=== PATIENT | male | born 1945 | race Caucasian/White ===

== ENCOUNTER 2021-05-07 11:10 | Observation (INO) | payer MEDICARE, SELFPAY ==
[2021-05-07] VITALS (15 sets, daily range): BP systolic 116–148; BP diastolic 49–80; PULSE 85–96; RESP 16–20; TEMP 36.1–37.1; O2SAT 99–100; BMI 22.9
--- NOTE | ~2021-05-07 | XR_ITS ---
EXAMINATION: XR chest 2V DATE: 05/07/2021 13:55 INDICATION: Anemia. TECHNIQUE: Frontal and lateral views of the chest were obtained. COMPARISON: None. FINDINGS: There is mild scarring at the lung apices. A calcified left lung nodule is consistent with old granulomatous disease. No pleural effusion or pneumothorax. The heart size is normal. There is a moderate-sized hiatal hernia. IMPRESSION: 1. Mild scarring at the lung apices. 2. Moderate-sized hiatal hernia. Reviewed, dictated and finalized at location A.
--- NOTE | ~2021-05-07 | US_ITS ---
EXAMINATION: US venous doppler LE EXAM DATE: 05/08/2021 08:02 INDICATION: Bilateral leg edema. TECHNIQUE: Multiple grayscale, color flow and Doppler images of the lower extremity deep venous syste ms bilaterally were obtained and reviewed. There is no prior study for comparison. FINDINGS: Right side: The right common femoral, femoral and profunda veins demonstrate normal color flow, respi ratory variation, augmentation and compressibility. Compressibility, color flow confirmed within the right popliteal, posterior tibial, peroneal, and greater saphenous veins. Left side: The left common femoral, femoral and profunda veins demonstrate normal color flow, respira tory variation, augmentation and compressibility. Compressibility, color flow confirmed within the l eft popliteal, posterior tibial, peroneal, and greater saphenous veins. IMPRESSION: 1. No lower extremity deep venous thrombosis bilaterally. Reviewed, dictated and finalized at location B.
--- NOTE | 2021-05-07 12:51 | ED.SKABFB ---
HPI - Skin/Abscess/Foreign Bdy General Chief complaint: Skin/Abscess/Foreign Body Stated complaint: rash after covid vaccine Time Seen by Provider: 05/07/21 11:22 Source: patient Mode of arrival: ambulatory Limitations: no limitations History of Present Illness HPI narrative: Patient is a 75-year-old male who presents with complaints of itching and rash x1 month. Patient reports having second dose of Pfizer vaccine on 04/07 and reports symptoms of itching and rash starting on 04/08. He reports pins and needle sensation with rash. Patient has used ihna-vzw-iuxwwki meds without relief. Patient reports being seen in urgent care and given a prescription for prednisone with moderate relief. Patient does not have a PCP, denies significant medical history and does not take medication daily. MD complaint: rash Related Data Allergies Allergy/AdvReac Type Severity Reaction Status Date / Time No Known Allergies Allergy Verified 05/07/21 11:23 Review of Systems Review of Systems: Narrative: CONSTITUTIONAL: Denies fever, chills, or sweats. EYES: Denies visual changes, redness, or discharge. ENT: Denies rhinorrhea, congestion, sore throat, or otalgia. CARDIOVASCULAR: Denies chest pain, palpitations, or edema. RESPIRATORY: Denies cough or dyspnea. GASTROINTESTINAL: Denies abdominal pain, nausea, vomiting, or diarrhea. GENITOURINARY: Denies dysuria or hematuria. SKIN: Reports rash to bilateral extremities and trunk MUSCULOSKELETAL: Denies back pain, joint pain, or myalgia. NEUROLOGIC: Denies headache, numbness, dizziness, or weakness. PSYCHIATRIC: Denies anxiety or depression. [facility] Past Medical History Medical History Patient denies significant medical history Surgical History Surgical History No significant past surgical history Social History Social History (Updated 05/07/21 @ 12:54 by ZACH Monique) Smoking status: Never smoker Alcohol intake: current Alcohol use details: Occasional Substance use: never Living arrangements: with family Occupation/Education: occupation Comments At the time of signature, I have reviewed and agree with nursing past medical, surgical, social, and family history unless otherwise noted. Please see nursing chart for further information. There is no relevant family history pertinent to the presenting complaint. Exam Narrative: Exam Narrative: GENERAL: Well-appearing, well-nourished, and in no acute distress. HEAD: Normocephalic, atraumatic. EYES: EOMI. No redness or drainage. Conjunctiva are normal. ENT: Mucous membranes pink and moist. CHEST: No respiratory distress. HEART: Regular rate and rhythm. EXTREMITIES: Normal range of motion. No edema. SKIN: Warm, dry, no rash. NEURO: No focal deficits. Alert and oriented x3. Gait steady. PSYCH: Normal affect. No signs of depression or anxiety. Course Vital Signs Vital signs: Vital Signs Temperature 36.6 C 05/07/21 11:16 Pulse Rate 91 05/07/21 11:16 Respiratory Rate 20 05/07/21 11:16 Blood Pressure 143/67 H 05/07/21 11:16 Pulse Oximetry 100 05/07/21 11:16 Temperature 36.6 C 05/07/21 11:16 Pulse Rate 91 05/07/21 11:16 Respiratory Rate 20 05/07/21 11:16 Blood Pressure 143/67 H 05/07/21 11:16 Pulse Oximetry 100 05/07/21 11:16 Reviewed. Patient has been instructed to follow-up with his PCP regarding his blood pressure. MDM - Skin/Abscess/Foreign Bdy MDM Narrative Medical decision making narrative: Patient's H&H decreased, patient is severely anemic. Discussed with ARMINDA Peng, who agrees to admission for Dr. Hong. Patient to be admitted for transfusion and further evaluation at this time. Patient agrees with plan of care. Patient is stable for admission. Lab Data Result diagrams: 05/07/21 14:13 05/07/21 13:15 Labs: Lab Results 05/07/21
[2021-05-07 13:25] LABS: Basophils Percent Auto 0.2 % (0.2-1.2); Eosinophils Absolute Auto 1.3 K/mm3 (0-0.3); Eosinophils Percent Auto 21.6 % (0-4.4); Hematocrit 21.9 % (42.0-52.0); Immature Granulocyte Absolute 0.01 K/mm3 (0.00-0.031); Immature Granulocyte Percent A 0.2 % (0-0.5); Lymphocytes Absolute Auto 1.11 K/mm3 (0.9-3.2); Lymphocytes Percent Auto 18.8 % (18.3-44.2); Mean Corpuscular HGB Conc 24.2 g/dl (32-36); Mean Corpuscular Hemoglobin 17.3 pg (26-34); Mean Corpuscular Volume 71.3 fl (80-100); Mean Platelet Volume 10.1 fl (7.4-10.4); Monocytes Absolute Auto 0.4 K/mm3 (0.1-0.6); Monocytes Percent Auto 6.6 % (2.6-8.5); Neutrophils Absolute Auto 3.1 K/mm3 (1.3-6.7); Neutrophils Percent Auto 52.6 % (45.5-73.1); Platelet Count Result 277 k/mm3 (150-375); Red Blood Count 3.07 M/mm3 (4.6-6.20); White Blood Count 5.9 K/mm3 (4.5-10.0)
--- NOTE | 2021-05-07 13:35 | PC.NURSE ---
states past couple years slowed down to a stop, stubborn and has not seen a doctor , no known hx anemia. Pt appears pale in color, says he has appeared jaundiced, and he is always cold . Pt denies SOB, no resp distress
[2021-05-07 13:36] LABS: Alanine Aminotransferase 24 U/L (4-50); Albumin Level 3.5 g/dL (3.5-5.1); Alkaline Phosphatase 110 U/L (38-126); Anion Gap 6 mmol/L (8-16); Aspartate Amino Transferase 24 U/L (17-59); Bilirubin,Total 0.4 mg/dL (0.2-1.3); Blood Urea Nitrogen 11 mg/dL (9-20); Calcium 8.1 mg/dL (8.4-10.2); Carbon Dioxide 26 mmol/L (22-30); Chloride 105 mmol/L (98-107); Estimated CRCL calculation 125 ml/min; Estimated Glomerular Filt Rate > 60; Glucose 102 mg/dL (75-110); Hemoglobin 5.3 g/dL (14.0-18.0); Potassium 3.3 mmol/L (3.4-5.0); Sodium 137 mmol/L (137-145)
[2021-05-07 13:37] LABS: Anisocytosis 3+ (NORMAL); Platelet Estimate Adequate (Adequate)
[2021-05-07 13:38] LABS: Hypochromasia 2+ (NORMAL); Ovalocytes 2+ (NORMAL); Spherocytes 1+ (NORMAL)
[2021-05-07 14:22] LABS: Basophils Percent Auto 0.2 % (0.2-1.2); Eosinophils Absolute Auto 1.2 K/mm3 (0-0.3); Hematocrit 21.3 % (42.0-52.0); Immature Granulocyte Absolute 0.01 K/mm3 (0.00-0.031); Immature Granulocyte Percent A 0.2 % (0-0.5); Immature Platelet Fraction Pct 9.7 % (0.9-11.2); Lymphocytes Absolute Auto 1.13 K/mm3 (0.9-3.2); Lymphocytes Percent Auto 19.7 % (18.3-44.2); Mean Corpuscular HGB Conc 24.4 g/dl (32-36); Mean Corpuscular Hemoglobin 17.3 pg (26-34); Mean Corpuscular Volume 70.8 fl (80-100); Mean Platelet Volume 11.3 fl (7.4-10.4); Monocytes Absolute Auto 0.4 K/mm3 (0.1-0.6); Monocytes Percent Auto 6.3 % (2.6-8.5); Neutrophils Absolute Auto 3.1 K/mm3 (1.3-6.7); Neutrophils Percent Auto 53.6 % (45.5-73.1); Platelet Count Result 209 k/mm3 (150-375); Red Blood Count 3.01 M/mm3 (4.6-6.20); Red Cell Distribution Width 19.2 % (11.5-14.5); White Blood Count 5.7 K/mm3 (4.5-10.0)
[2021-05-07 14:47] LABS: Hemoglobin 5.2 g/dL (14.0-18.0)
[2021-05-07 14:49] LABS: Platelet Estimate Adequate (Adequate)
[2021-05-07 14:50] LABS: Anisocytosis 2+ (NORMAL); Hypochromasia 1+ (NORMAL); Poikilocytosis 2+ (NORMAL)
[2021-05-07 14:51] LABS: Burr Cells 2+ (NORMAL); Helmet Cells 1+ (NORMAL); Ovalocytes 2+ (NORMAL); Target Cells 1+ (NORMAL)
--- NOTE | 2021-05-07 19:23 | ADMGEN ---
This patient, Tacho Nevarez, was admitted to 3 [facility] Surg Room 306-01 at 1755. Patient/family oriented to hospital policies and general routines including ID bracelet, bed and alarms, visiting hours, pain management, procedures, bathroom and other care routines, personal items, smoking policy, room service/diet, and visiting hours. Information on how to activate the Rapid Response Team has been discussed. Patient/Family are encouraged to report perceived risks to care and to ask questions if they do not understand what they are told or what they should do.
--- NOTE | 2021-05-07 20:00 | PM.IMHP ---
H&P: HPI History of Present Illness Date/Time: 05/07/21 20:00This is a 75-year-old male patient does not routinely go to Dr.. The patient stated he has not been to a doctor for over 40 years. The patient stated that he received a COVID vaccine on 04/07/2020 in started to break out in a rash the next day. The patient stated that he did fill out a reaction form at [facility] we had the vaccine. The patient has a red raised itchy rash since his vaccine. The patient was using Caladryl at home and that does not seem to be helping. The patient came in today to be checked out for his rash. He had some labs performed when he got here. patient's RBC was 3.01. H&H is 5.2 in 21.3. MCV is 70.8. Potassium 3.3 the patient was ordered 2 units of packed red blood cells. the patient did not receive any anemia workup prior to his 2 units of packed red blood cells. The patient is being admitted for observation status on the date of service of 05/07/2021. Chief Complaint: rash Review of Systems Review of Systems: All systems reviewed & are unremarkable except as noted in HPI and below Constitutional: Constitutional: Reports as per HPI and Reports no additional constitutional complaints Eyes: Eyes: Reports as per HPI and Reports no additional eye complaints ENT: Reports system reviewed and no additional complaints, except as documented and Reports Normal hearing present Cardiovascular: Cardiovascular: Reports no additional cardiovascular complaints Respiratory: Respiratory: Reports no additional respiratory complaints and Reports no additional respiratory complaints Gastrointestinal: Gastrointestinal: Reports as per HPI and Reports no additional gastrointestinal complaints Musculoskeletal: Musculoskeletal: Reports no additional musculoskeletal complaints Integumentary/Breasts: Skin/Breast: Reports system reviewed and no additional complaints, except as docu and Reports as per HPI Neurologic: Reports system reviewed and no additional complaints, except as documented, Reports as per HPI and Reports Normal hearing present Psychiatric: Psychiatric: Reports no additional psychiatric complaints and Reports as per HPI Endocrine: Endocrine: Reports no additional endocrine complaints Hematologic/Lymphatic: Hematologic/Lymphatic: Reports no additional hematologic/lymphatic complaints Allergic/Immunologic: Allergic/Immunologic: Reports no additional allergic/immunologic complaints [facility] Past Medical History Medical History (Updated 05/07/21 @ 20:08 by Ginette Carl NP) Patient denies significant medical history Surgical History Surgical History (Updated 05/07/21 @ 20:08 by Ginette Carl NP) History of cataract extraction No significant past surgical history Family History Family History Mother Diabetes mellitus Heart attack Father Diabetes mellitus Sibling Diabetes mellitus COVID Social History Social History (Updated 05/07/21 @ 20:11 by Ginette Carl NP) Social History: the 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 The patient has 1 daughter. The patient occasionally has a glass of bourbon. Smoking status: Never smoker Alcohol intake: current Drinks per week: 4 Alcohol use details: Occasional Substance use: never Living arrangements: with family Occupation/Education: occupation Gender identity (if verbalized by the patient): Male Sexual Orientation (if Verbalized by the Patient): Straight or Heterosexual Spiritual care concerns: No Meds Home Medications and Allergies Home Medications Medication Instructions Recorded Confirmed Type [id number]-gipilzf-FOS-bromeln 15 ml PO DAILY 05/07/21 05/07/21 History [Cystex Cranberry] diphenhydramine-calamine [Caladryl 1 ea TOPICAL PRN PRN 05/07/21 05/07/21 History (diphenhydramine)]
[2021-05-07 22:13] LABS: Hemoglobin 7.3 g/dL (14.0-18.0); Reticulocyte Hemoglobin Conten 18.1 pg (28.2-35.7); Reticulocyte Percent 0.85 % (0.7-4.3); Reticulocytes Absolute 0.03 B/L (32.2-175.7)
[2021-05-07 22:20] LABS: Lactate Dehydrogenase 431 U/L (313-618)
[2021-05-07 22:21] LABS: Bilirubin,Total 0.9 mg/dL (0.2-1.3)
[2021-05-07 22:27] LABS: Transferrin 278 mg/dL (206-381)
[2021-05-07 22:50] LABS: Iron 94 ug/dL (49-181)
[2021-05-07 23:00] LABS: Percent Iron Saturation 23 % (20-50)
[2021-05-07 23:26] LABS: Ferritin 4.31 ng/mL (11.1-264)
[2021-05-07 23:27] LABS: Folic Acid 3.8 ng/mL (2.76->20)
--- NOTE | 2021-05-08 | ECHO_ITS ---
Patient Info Name: Tacho Nevarez Age: 75 years : 1945 Gender: Male Ht: 68 in Wt: 150 lbs BSA: 1.81 m2 HR: 83 bpm BP: 107 / 50 mmHg Technical Quality: Fair Exam Date: 05/08/2021 10:58 AM Exam Location: [facility] Pulmonary Patient Status: Outpatient Admit Date: 05/07/2021 Staff Ordering Physician: Ginette Carl NP Floor Care Technician: Ruth Ann Mayer RDCS Attending Provider: Laila Reyes PA-C Referring Physician: Meseret POLLARD; Exam Type: CA echo doppler color flow Study Info Indications R60.9 - Edema, unspecified Complete two-dimensional, color flow and Doppler transthoracic echocardiogram is performed. Summary 1. Complete two-dimensional, color flow and Doppler transthoracic echocardiogram is performed. 2. Left ventricular systolic function is normal, estimated at 60-65%. 3. The left ventricular diastolic function is indeterminate. 4. There is trace mitral valve regurgitation. 5. There is mild tricuspid valve regurgitation. Left Ventricle Left ventricular chamber dimension is normal. Left ventricular systolic function is normal, estimated at 60-65%. There is no increased left ventricular wall thickness. Left ventricular septal wall motion is normal. The left ventricular diastolic function is indeterminate. Right Ventricle Right ventricular chamber dimension is normal. Right ventricular systolic function is normal. Left Atria Left atrial chamber dimension is normal. Right Atria Right atrial chamber dimension is normal. Atrial Septum Intact interatrial septum visualized by color flow imaging. Aortic Valve The aortic valve is trileaflet. There is mild aortic valve sclerosis. There is no aortic valve stenosis. There is no aortic valve regurgitation. Pulmonic Valve The pulmonic valve is normal. There is no pulmonic valve stenosis. There is no pulmonic regurgitation. Mitral Valve The mitral valve has normal leaflets. There is no mitral valve stenosis. There is trace mitral valve regurgitation. Tricuspid Valve The tricuspid valve leaflets are normal. There is no significant tricuspid valve stenosis. There is mild tricuspid valve regurgitation. Mild pulmonary hypertension, estimated pulmonary arterial systolic pressure is 42 mmHg. Pericardium/Pleural The pericardium appears normal. There is no pericardial effusion. Inferior Vena Cava Normal inferior vena cava with >50% collapse upon inspiration consistent with normal right atrial pressure, 10 mmHg. Aorta The aortic root size at the sinus of Valsalva is normal. The prox ascending aorta size is normal. Left Ventricular Outflow Tract Name Value Normal LVOT 2D LVOT Diameter 2.0 cm LVOT Doppler LVOT Peak Gradient 10 mmHg LVOT Mean Gradient 6 mmHg LVOT VTI 34 cm LVOT VTI/AV VTI Ratio 0.9 LVOT Stroke Volume 104 ml Pulmonic Valve Name Value Normal
[2021-05-08] MEDS: SODIUM CHLORIDE 0.9% IV 1,000 ML 125 ML IV CONT (00:35)
[2021-05-08] MEDS: diphenhydrAMINE HCl INJ 50 MG/ML VIAL 25 MG IV PUSH (00:42)
[2021-05-08 04:02] LABS: Hemoglobin 7.1 g/dL (14.0-18.0)
[2021-05-08 04:11] LABS: Lactic Acid Reflex 0.8 mmol/L (0.7-2.1)
[2021-05-08 04:55] LABS: Alanine Aminotransferase 22 U/L (4-50); Albumin Level 3.1 g/dL (3.5-5.1); Alkaline Phosphatase 95 U/L (38-126); Anion Gap 7 mmol/L (8-16); Aspartate Amino Transferase 26 U/L (17-59); Bilirubin,Total 1.1 mg/dL (0.2-1.3); Blood Urea Nitrogen 12 mg/dL (9-20); Carbon Dioxide 25 mmol/L (22-30); Chloride 106 mmol/L (98-107); Estimated CRCL calculation 125 ml/min; Estimated Glomerular Filt Rate > 60; Glucose 93 mg/dL (75-110); Lactate Dehydrogenase 444 U/L (313-618); Potassium 3.3 mmol/L (3.4-5.0); Sodium 138 mmol/L (137-145); Uric Acid 2.9 mg/dL (3.5-8.5)
[2021-05-08 05:37] VITALS: BP 107/50; PULSE 82; RESP 18; TEMP 37; O2SAT 98
[2021-05-08 08:41] LABS: Hematocrit 26.9 % (42.0-52.0); Hemoglobin 7.3 g/dL (14.0-18.0)
[2021-05-08 10:37] LABS: Mean Corpuscular HGB Conc 26.7 g/dl (32-36); Mean Corpuscular Hemoglobin 20.1 pg (26-34); Mean Platelet Volume 11.2 fl (7.4-10.4); Platelet Count Result 257 k/mm3 (150-375); Red Blood Count 3.64 M/mm3 (4.6-6.20); Red Cell Distribution Width 20.1 % (11.5-14.5); White Blood Count 5.4 K/mm3 (4.5-10.0)
[2021-05-08] MEDS: CYANOCOBALAMIN INJ 1,000 MCG/ML VIAL 1000 MCG IM (10:40)
[2021-05-08] MEDS: POTASSIUM CHLORIDE 20 MEQ TABLET 40 MEQ PO (10:40)
[2021-05-08] MEDS: PANTOPRAZOLE SODIUM IV 40 MG VIAL IV PUSH ×2 (10:44→20:03)
[2021-05-08] MEDS: IRON SUCROSE COMPLEX 500 MG in SODIUM CHLORIDE 0.9% IV 250 ML 78.57 MG IVPB (10:56)
[2021-05-08 10:58] LABS: Band Neutrophils Percent 2 % (0-6); Eosinophils Absolute Manual 1.08 K/mm3 (0.02-0.5); Eosinophils Percent Manual 20 % (0-4); Lymphocytes Absolute Manual 0.75 K/mm3 (1.1-4.5); Monocytes Absolute Manual 0.32 K/mm3 (0.1-0.90); Monocytes Percent Manual 6 % (3-9); Neutrophils Absolute Manual 3.24 K/mm3 (1.3-6.7); Neutrophils Percent Manual 58 % (46-73); Platelet Estimate Adequate (Adequate); Total Cells Counted 100
[2021-05-08 10:59] LABS: Helmet Cells 1+ (NORMAL); Ovalocytes 2+ (NORMAL); Tear Drop Cells 2+ (NORMAL)
--- NOTE | 2021-05-08 13:03 | PDONCCN ---
HPI - Date of Consult Date/Time: 05/08/21 13:03 Requesting Physician: Laila Reyes PA-C Primary Care Provider: CONTROL CLERK PHYSICIAN - Consult Narrative Reason for consult: Anemia Narrative: Tacho Nevarez is a 75 year old male was in in good health came into the hospital after receiving COVID vaccine injection on April 07, 2020 and then breakdown with a rash next day. He tried steroid without much relief. Patient was followed up by the primary care physician and labs were drawn that showed hemoglobin of 5.2 with MCV of 70.8. He denies any bleeding including melena hematochezia. He was complaining of excessive tiredness and fatigue His last colonoscopy was almost 80 years ago. He has been eating well and denies being a vegetarian. He denies any other complain. His rash has improved. Patient received 2 units of packed red blood cells with improvement in hemoglobin. Review of Systems - Review of Systems All systems reviewed & are unremarkable except as noted in HPI and bel - Neurologic Reports system reviewed and no additional complaints, except as documented, Reports hearing normal [facility] Medical History: Medical History (Last Reviewed 05/07/21 @ 12:54 by ZACH Monique) Patient denies significant medical history Surgical History: Surgical History (Last Updated 05/07/21 @ 20:08 by Ginette Carl NP) History of cataract extraction No significant past surgical history Family History: Family History (Last Reviewed 05/07/21 @ 20:09 by Ginette Carl NP) Mother Diabetes mellitus Heart attack Father Diabetes mellitus Sibling Diabetes mellitus COVID - Social History Social History: Social History (Last Updated 05/07/21 @ 20:11 by Ginette Carl NP) Gender Identity: Gender identity (if verbalized by the patient): Male Sexual Orientation: Sexual Orientation (if Verbalized by the Patient): Straight or Heterosexual Alcohol Use: Alcohol intake: current Drinks per week: 4 Alcohol use details: Occasional Substance Use: Substance use: never Others: Spiritual care concerns: No Living Arrangements: Living arrangements: with family Oppucation/Education: Occupation/Education: occupation Smoking Status: Smoking status: Never smoker Meds Home Medications Medication Instructions Recorded Confirmed Type citw-dhnE-oydbipn-FOS-bromeln 15 ml PO DAILY 05/07/21 05/07/21 History [Cystex Cranberry] diphenhydramine-calamine [Caladryl 1 ea TOPICAL PRN PRN 05/07/21 05/07/21 History (diphenhydramine)] Allergies Allergy/AdvReac Type Severity Reaction Status Date / Time pollen extracts AdvReac Congested Verified 05/07/21 19:31 Results - Labs CBC & Chem 7: 05/08/21 08:26 05/08/21 03:46 Labs: Short CBC 05/07/21 05/07/21 05/07/21 Range/Units 13:15 14:13 21:53 WBC 5.9 5.7 (4.5-10.0) K/mm3 Hgb 5.3 L* 5.2 L* 7.3 L (14.0-18.0) g/dL Hct 21.9 L 21.3 L 27.0 L (42.0-52.0) % Plt Count 277 209 (150-375) k/mm3 05/08/21 05/08/21 Range/Units 03:46 08:26 WBC 5.4 (4.5-10.0) K/mm3 Hgb 7.1 L 7.3 L (14.0-18.0) g/dL Hct 26.0 L 26.9 L (42.0-52.0) % Plt Count 257 (150-375) k/mm3 BMP 05/07/21 05/08/21 13:15 03:46 Sodium 137 138 Potassium 3.3 L 3.3 L Chloride 105 106 Carbon Dioxide 26 25 BUN 11 12 Creatinine 0.40 L 0.40 L Glucose 102 93 Calcium 8.1 L 8.0 L Liver Function 05/07/21 05/07/21 05/08/21 Range/Units 13:15 21:59 03:46 Total Bilirubin 0.4 0.9 1.1 (0.2-1.3) mg/dL Direct Bilirubin 0.0 (0-0.3) mg/dL AST 24 26 (17-59) U/L ALT 24 22 (4-50) U/L Alkaline Phosphatase 110 95 (38-126) U/L Albumin 3.5 3.1 L (3.5-5.1) g/dL Assessment and Plan - Additional Plan Microcytic anemia. Patient is a pleasant 75-year-old male who developed generalized rash after the last COVID vaccine on Ruba
[2021-05-08 14:00] VITALS: BP 127/57; PULSE 72; RESP 18; TEMP 36.4; O2SAT 100
--- NOTE | 2021-05-08 14:47 | PM.IMPN ---
Progress Note: A&P Assessment and Plan (1) Anemia: Qualifiers: Anemia type: unspecified type Qualified Code(s): D64.9 - Anemia, unspecified Code(s): D64.9 - Anemia, unspecified Status: Acute Assessment and Plan: Acute severe iron deficiency with low ferritin levels and B12 deficiency anemia. Could be from diet vs Gi bleeding vs bone marrow issue vs underlying cancer. Required 2 units of PRBCs which improved his hemoglobin from 5.2 to 7.3. The patient denies any melena or hematochezia Stool occult blood is still pending he was started on IV Venofer and IM Cyanocobalamin. Hematology was consulted and they evaluated the patient. Agrees with supplementation of iron and B12 and GI consultation. GI was consulted which was recommended by the collar tacker for further evaluation of his severe iron deficiency anemia Continue monitoring H&H Q 6 and check stools. transfuse as needed if hemoglobin becomes less than 7. Appreciate GI and hematology consultation. (2) Extremity edema: Code(s): R60.0 - Localized edema Status: Acute Assessment and Plan: the patient reports history of leg swelling but usually improves with elevation. He had venous Dopplers which were negative for any DVT. The patient did receive IV fluids since admission and has noticed an increase in his leg swelling as well as swelling to his arms and hands. We have discontinued IV fluids at this time since he is eating and drinking without any issues and is not dehydrated. His lungs are clear with no signs of fluid overload. Echocardiogram has been ordered but pending still tender's interpretation to look for any underlying congestive heart failure Continue monitoring intake and output. Weights daily. (3) Rash: Code(s): R21 - Rash and other nonspecific skin eruption Status: Acute Assessment and Plan: The patient stated that he has had this rash since his COVID vaccine 1 month ago. He has tried Calamine lotion without any improvement. This is why he actually came into the emergency room yesterday. He was given a dose of IV Benadryl but states he did not have any improvement of his symptoms. Will start Hydrocordizone Cream 2.5%, PRN PO Benadryl 25 mg, consider scheduling Q6hrs if still no improvement and then consider discharging on steroids if no improvement with any of the above. Time Spent With Patient Time with patient: 25 - 35 minutes Subjective Date/time seen: 05/08/21 14:47 Interval history: Date of service 05/08/2021: patient reports coming into the emergency room due to his diffuse rash to his waist up, without any improvement with topical calamine lotion. While he was here he was found to have significant anemia which surprised him. He does report a 38 lb weight loss in the last year and a half due to some postprandial pain and intermittent nausea and vomiting. He denies any melena or hematochezia. He does report some leg swelling but states it improves when he puts his feet up at night. he does report some PND and his states she has witnessed apnea episodes while he sleeps. He denies any fevers, chills, chest pain, shortness of breath, orthopnea, Calf pain, lightheadedness, dizziness, palpitations or any other symptoms at this time. Review of Systems Review of Systems: All systems reviewed & are unremarkable except as noted in HPI and below Exam Narrative: Exam Narrative: General: 75-year-old man sitting up on the side of the bed talking to his . Appears comfortable. In no acute distress. Skin: Pale appearing. No jaundice or cyanosis. Good skin turgor. Neck: Full range of motion. Supple. Respiratory: Lungs are clear to auscultation bilaterally. No wheezing, rales or rhonchi. No bony chest wall tenderness. Cardiov
[2021-05-08 15:06] LABS: Hematocrit 27.2 % (42.0-52.0); Hemoglobin 7.3 g/dL (14.0-18.0)
[2021-05-08 15:07] LABS: Anion Gap 9 mmol/L (8-16); Blood Urea Nitrogen 9 mg/dL (9-20); Carbon Dioxide 22 mmol/L (22-30); Chloride 110 mmol/L (98-107); Estimated CRCL calculation 103 ml/min; Estimated Glomerular Filt Rate > 60; Glucose 109 mg/dL (75-110); Potassium 3.6 mmol/L (3.4-5.0); Sodium 141 mmol/L (137-145)
--- NOTE | 2021-05-08 15:32 | WPDGICN ---
Assessment and Plan Assessment and plan (1) Anemia: Qualifiers: Anemia type: unspecified type Qualified Code(s): D64.9 - Anemia, unspecified Code(s): D64.9 - Anemia, unspecified Status: Acute Assessment and Plan: he has marked anemia with microcytic indices. This is suggestive of chronic blood loss. The most likely etiology would be colorectal or other gastrointestinal malignancy, colonic AVMs, and less likely peptic ulcer disease or some upper gastrointestinal pathology such as watermelon stomach I will schedule him for EGD and colonoscopy to be done tomorrow morning. We discussed at length the prep the risks and the possibilities of bleeding or perforation or the possible need for surgery to correct a complication. We discussed the sedation in the risk of cardiopulmonary complications. He agrees to proceed, adding that he has no problem with colonoscopy in taking the prep. He was at 1st concerned about someone putting instrument down his esophagus. GI Consult Note Consult date/time: 05/08/21 15:32 HPI: Tacho Nevarez is a 75 year old male who presented today to the emergency room to be investigated for her rash that developed after he received a COVID vaccine. He was found have a hemoglobin of 5.2 g. He states that he has never been anemic in the past. He denies seen blood in his stools or having black or tarry stools. He denies frequent heartburn or dysphagia. He denies any change in bowel habits. He has had some slight drop in his appetite and his weight but states that he usually eats very well. He does not use NSAIDs. He denies any abdominal pain. 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 Another 20 or 30 minutes later it was gone as if somebody flipped a switch. He states his last colonoscopy was about fiber 6 years ago [facility]. His is fairly certain that there was nothing significant found on that study. Although he had a primary care physician at that time he also brags that he has not seen a doctor for 40 years Review of Systems Review of Systems: All systems reviewed & are unremarkable except as noted in HPI and below PMFSH Past Medical History Medical History Patient denies significant medical history Surgical History Surgical History History of cataract extraction No significant past surgical history Family History Family History Mother Diabetes mellitus Heart attack Father Diabetes mellitus Sibling Diabetes mellitus COVID Social History Social History (Updated 05/08/21 @ 15:36 by Jesse Falk MD) Social History: the patient is and his is 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 The patient has 1 daughter. The patient occasionally has a glass of bourbon. 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 Smoking status: Never smoker Alcohol intake: current Drinks per week: 4 Alcohol use details: Occasional Substance use: never Living arrangements: with family Occupation/Education: occupation Gender identity (if verbalized by the patient): Male Sexual Orientation (if Verbalized by the Patient): Straight or Heterosexual Spiritual care concerns: No Meds Home Medications and Allergies Home Medications Medication Instructions Recorded Confirmed Type omft-gfnE-gtguiiq-FOS-bromeln 15 ml PO DAILY 05/07/21 05/07/21 History [Cystex Cranberry] diphenhydramine-calamine [Caladryl 1 ea TOPICAL PRN PRN 05/07/21 05/07/21 History (diphenhydramine)] Al
[2021-05-08] MEDS: PEG (High)/E-LYTE SOLN 4,000 ML BTL 3000 ML PO (16:02)
[2021-05-08 16:44] LABS: INR 1.1
[2021-05-08 16:45] LABS: Partial Thromboplastin Time 35.5 SECONDS (22.3-36.8)
[2021-05-08 18:48] LABS: Hematocrit 27.9 % (42.0-52.0); Hemoglobin 7.4 g/dL (14.0-18.0)
[2021-05-08] MEDS: HYDROCORTISONE 2.5% CREAM 30 GM TUBE 1 APPLIC TOPICAL (20:03)
[2021-05-08] MEDS: diphenhydrAMINE HCl CAP 25 MG CAPSULE PO (21:16)
[2021-05-08] MEDS: BISACODYL 5 MG TABLET EC 10 MG PO (21:16)
[2021-05-08 21:39] VITALS: BP 127/68; PULSE 81; RESP 18; TEMP 37; O2SAT 100
[2021-05-09] VITALS (12 sets, daily range): BP systolic 88–154; BP diastolic 51–78; PULSE 69–78; RESP 14–23; TEMP 36.5–36.8; O2SAT 95–100
[2021-05-09 01:56] LABS: Hematocrit 24.3 % (42.0-52.0)
[2021-05-09 02:21] LABS: Hemoglobin 6.7 g/dL (14.0-18.0)
[2021-05-09] MEDS: SODIUM CHLORIDE 0.9% IV 250 ML 30 ML IV CONT (05:15)
--- NOTE | 2021-05-09 07:24 | PCDIET ---
Patient finished bowel prep before 2300 05/09/21. He stated that he left his last BM in the toilet. It had a reddish brown tinge and no solids, otherwise clear. A critical H&H of was called and hospitalist Breanna notified at 0244. One unit of blood was ordered and started at about 0535. It has continued to run through this time. Patient has no c/o SOB, chest pain, or other related complications during the transfusion. It was started at 60 lpm and 15 minutes later it was been increased to 200 lpm with no further complications. This was done with the intent of having the blood transfused and H&H drawn before his procedures today.
[2021-05-09] MEDS: CYANOCOBALAMIN INJ 1,000 MCG/ML VIAL 1000 MCG IM (08:27)
[2021-05-09] MEDS: IRON SUCROSE COMPLEX 500 MG in SODIUM CHLORIDE 0.9% IV 250 ML 78.57 MG IVPB (08:27)
[2021-05-09] MEDS: HYDROCORTISONE 2.5% CREAM 30 GM TUBE 1 APPLIC TOPICAL (08:27)
[2021-05-09] MEDS: PANTOPRAZOLE SODIUM IV 40 MG VIAL IV PUSH (08:28)
[2021-05-09 10:23] LABS: Hematocrit 29.5 % (42.0-52.0); Hemoglobin 8.3 g/dL (14.0-18.0)
[2021-05-09 10:56] LABS: Anion Gap 6 mmol/L (8-16); Blood Urea Nitrogen 3 mg/dL (9-20); Calcium 8.2 mg/dL (8.4-10.2); Carbon Dioxide 24 mmol/L (22-30); Chloride 110 mmol/L (98-107); Estimated CRCL calculation 125 ml/min; Estimated Glomerular Filt Rate > 60; Glucose 86 mg/dL (75-110); Potassium 3.5 mmol/L (3.4-5.0); Sodium 140 mmol/L (137-145)
--- NOTE | 2021-05-09 11:30 | PC.NURSE ---
To GI Lab per w/c, IV continues. Report given to JOSEPH.
[2021-05-09] MEDS: LACTATED RINGERS 1,000 ML 150 ML IV CONT (11:41)
--- NOTE | 2021-05-09 12:05 | WPDANESEPPF ---
Anes - Initial Pre Proc Eval Procedure: Operation Date: 05/09/21 11:30 Proposed Procedures p Esophagogastroduodenoscopy & Colonoscopy - Jesse Falk MD Date/Time: 05/09/21 12:05 Surgeon: Laila Reyes PA-C Pre Op Diagnosis: severe anemia Patient Data Age: 75 Gender: M Height: 1.73 m Weight: 76.5 kg Last Vital Signs Temp 97.7 F 05/09/21 11:37 Pulse 74 05/09/21 11:37 Resp 20 05/09/21 11:37 BP 88/54 L 05/09/21 11:37 Pulse Ox 100 05/09/21 11:37 Allergies Allergy/AdvReac Type Severity Reaction Status Date / Time pollen extracts AdvReac Congested Verified 05/09/21 11:34 Home Medications Medication Instructions Recorded Confirmed Type kulp-ugmK-urhhmge-FOS-bromeln 15 ml PO DAILY 05/07/21 05/07/21 History [Cystex Cranberry] diphenhydramine-calamine [Caladryl 1 ea TOPICAL PRN PRN 05/07/21 05/07/21 History (diphenhydramine)] Laboratory Tests 05/07/21 05/08/21 05/08/21 15:04 14:38 14:38 Hgb 7.3 g/dL L g/dL (14.0-18.0) Hct 27.2 % L % (42.0-52.0) PT INR APTT Sodium 141 mmol/L mmol/L (137-145) Potassium 3.6 mmol/L mmol/L (3.4-5.0) Chloride 110 mmol/L H mmol/L (98-107) Carbon Dioxide 22 mmol/L mmol/L (22-30) Anion Gap 9 mmol/L mmol/L (8-16) BUN 9 mg/dL mg/dL (9-20) Creatinine 0.50 mg/dL L mg/dL (0.7-1.3) Estim Creat Clear Calc 103 ml/min ml/min Estimated GFR > 60 (59 - ) Glucose 109 mg/dL mg/dL (75-110) Calcium 8.0 mg/dL L mg/dL (8.4-10.2) Ur Random Creatinine U Random Total Protein Protein/Creatinin Ratio Urine Albumin U Pwpen-8-Fhjwllqr U Sktxv-1-Fxyhsiio U Beta Globulin U Gamma Globulin U Abnormal Prot Band 1 U Abnormal Prot Band 2 U Abnormal Prot Band 3 Urine PEP Interpret Blood Type A Positive Antibody Screen Negative Crossmatch See Detail 05/08/21 05/08/21 05/08/21 15:47 15:48 18:41 Hgb 7.4 g/dL L g/dL (14.0-18.0) Hct 27.9 % L % (42.0-52.0) PT 14.0 Seconds Seconds (11.1-14.7) INR 1.1 APTT 35.5 SECONDS SECONDS (22.3-36.8) Sodium Potassium Chloride Carbon Dioxide Anion Gap BUN Creatinine Estim Creat Clear Calc Estimated GFR Glucose Calcium Ur Random Creatinine Pending U Random Total Protein Pending Protein/Creatinin Ratio Pending Urine Albumin Pending U Hsnla-0-Uedupnyu Pending U Rekei-9-Nlvzpqej Pending U Beta Globulin Pending U Gamma Globulin Pending U Abnormal Prot Band 1 Pending U Abnormal Prot Band 2 Pending U Abnormal Prot Band 3 Pending Urine PEP Interpret Pending Blood Type Antibody Screen Crossmatch 05/09/21 05/09/21 05/09/21 01:42 09:58 09:58 Hgb 6.7 g/dL L* g/dL 8.3 g/dL L g/dL (14.0-18.0) (14.0-18.0) Hct 24.3 % L % 29.5 % L % (42.0-52.0) (42.0-52.0) PT INR APTT Sodium 140 mmol/L mmol/L (137-145) Potassium 3.5 mmol/L mmol/L (3.4-5.0) Chloride 110 mmol/L H mmol/L (98-107) Carbon Dioxide 24 mmol/L mmol/L (22-30) Anion Gap 6 mmol/L L mmol/L (8-16) BUN 3 mg/dL L D mg/dL (9-20) Creatinine 0.40 mg/dL L mg/dL (0.7-1.3) Estim Creat Clear Calc 125 ml/min ml/min Estimated GFR > 60 (59 - ) Glucose 86 mg/dL mg/dL (75-110) Calcium 8.2 mg
--- NOTE | 2021-05-09 13:35 | PC.NURSE ---
Returned from GI Lab. Report received from JOSEPH.
--- NOTE | 2021-05-09 15:23 | PM.DS ---
DS: Admitting Diagnosis Admitting Diagnosis Admitting Diagnosis: Allergic reaction DS: Discharge Diagnosis Discharge Diagnosis (1) Anemia: Qualifiers: Anemia type: unspecified type Qualified Code(s): D64.9 - Anemia, unspecified Code(s): D64.9 - Anemia, unspecified Status: Acute Assessment and Plan: Acute severe iron deficiency with low ferritin levels and B12 deficiency anemia. Could be from diet vs Gi bleeding vs bone marrow issue vs underlying cancer. Required 2 units of PRBCs which improved his hemoglobin from 5.2 to 7.3. The patient denies any melena or hematochezia Stool occult blood is still pending he was started on IV Venofer and IM Cyanocobalamin. Hematology was consulted and they evaluated the patient. Agrees with supplementation of iron and B12 and GI consultation. GI was consulted which was recommended by the electronics tester for further evaluation of his severe iron deficiency anemia Continue monitoring H&H Q 6 and check stools. transfuse as needed if hemoglobin becomes less than 7. Appreciate GI and hematology consultation. at discharge patient will need labs either Wednesday05/12/21 or Wednesday05/13/2021 will continue his iron p.o. and vitamin B12 p.o. no notable bleeding noted on endoscopy or colonoscopy (2) Extremity edema: Code(s): R60.0 - Localized edema Status: Acute Assessment and Plan: the patient reports history of leg swelling but usually improves with elevation. He had venous Dopplers which were negative for any DVT. The patient did receive IV fluids since admission and has noticed an increase in his leg swelling as well as swelling to his arms and hands. We have discontinued IV fluids at this time since he is eating and drinking without any issues and is not dehydrated. His lungs are clear with no signs of fluid overload. Echocardiogram has been ordered but pending appliquer zigzag's interpretation to look for any underlying congestive heart failure Continue monitoring intake and output. Weights daily. (3) Rash: Code(s): R21 - Rash and other nonspecific skin eruption Status: Acute Assessment and Plan: The patient stated that he has had this rash since his COVID vaccine 1 month ago. He has tried Calamine lotion without any improvement. This is why he actually came into the emergency room yesterday. He was given a dose of IV Benadryl but states he did not have any improvement of his symptoms. Will start Hydrocordizone Cream 2.5%, PRN PO Benadryl 25 mg, consider scheduling Q6hrs if still no improvement and then consider discharging on steroids if no improvement with any of the above. DS: Summary Hospital Course Hospital Course: patient is 75-year-old male with no known past medical history of presented to the ED for evaluation of a rash. Patient went got his COVID-19 vaccination ended up with a rash on his body. When he got here was noted that his hemoglobin was 5.5 a hematocrit at 21.3 and MCV at 70.8. Patient was given a total of 3units of packed red blood cells since his hospital stay. Currently his hemoglobin is 8.3 with hematocrit of 29.5. Patient will need to get labs again on Wednesday or Wednesday. patient also received an endoscopy and a colonoscopy which biopsies were taken patient will need to follow-up with Dr. Falk in 2-3 days for results. Repeat H&H is 8.9/31.5 Patient expressed concerned about taking new medications and his anemia. I did explain to the patient these medications will be continued I also explained to the patient that he will need get labs to follow-up with his hemoglobin hematocrit. Patient really had no other complaints except for he was talking about his legs being swollen which get better with rest and elevation. Patient denies chest pain, shortness of b
[2021-05-09 15:31] LABS: Hematocrit 31.5 % (42.0-52.0); Hemoglobin 8.9 g/dL (14.0-18.0)
[2021-05-11 06:37] LABS: Albumin 3.2 g/dL (3.8-4.8); Alpha 1 Globulin 0.3 g/dL (0.2-0.3); Alpha 2 Globulin 0.5 g/dL (0.5-0.9); Beta 1 Globulin 0.4 g/dL (0.4-0.6); Gamma Globulin 0.6 g/dL (0.8-1.7); Interpretation Consistent with; Protein, Total 5.3 g/dL (6.1-8.1)
[2021-05-11 21:54] LABS: Haptoglobin 110 mg/dL (43-212)
[2021-05-12 12:13] LABS: Creatinine, Random Urine 116 mg/dL (20-320); Total Protein/Creatinine Ratio 207 mg/g creat (22-128)
[2021-05-13 17:26] LABS: Soluble Transferrin Receptor 5.79 mg/L (0.76-1.76)
== END 2021-05-09 16:55 | disposition home or self-care (01) ==
LOC: ANHED 15:23 → ANH3MEDSUR 15:40
PROVIDERS: Emergency Medicine; Internal Medicine Gastroenterology; Nurse Practitioner; Physician Assistant; Admitting Provider Family Medicine; Emergency Provider Nurse Practitioner; Visit Provider Internal Medicine
PROC: 0DJ08ZZ Inspection of Upper Intestinal Tract, Via Natural or Artificial Opening Endoscopic (ICD-10-PCS; CPT 43235; principal; 2021-05-09 11:30)
DX: K29.80 Duodenitis without bleeding (principal); D64.9 Anemia, unspecified; K57.30 Diverticulosis of large intestine without perforation or abscess without bleeding; K44.9 Diaphragmatic hernia without obstruction or gangrene; K22.2 Esophageal obstruction; K31.9 Disease of stomach and duodenum, unspecified; D50.9 Iron deficiency anemia, unspecified; R60.0 Localized edema; R21 Rash and other nonspecific skin eruption
CPT/HCPCS: 45378; 43239; 43249; 36415; 36430; 71046; 80048; 80053; 82247; 82248; 82570; 82607; 82728; 82746; 83010; 83540; 83550; 83605; 83615; 83735; 84155; 84156; 84165; 84166; 84238; 84443; 84466; 84550; 85014; 85018; 85025; 85046; 85055; 85610; 85730; 86850; 86880; 86900; 86901; 86920; 88305; 93306; 93970; 96361; 96372; 96374; 96375; 96376; 99285; A9270; C9113; G0378; G0379; J1200; J1756; J2704; J3420; J7030; J7050; J7120; P9016

== ENCOUNTER 2021-05-12 13:41 | Outpatient (CLI) | payer MEDICARE, SELFPAY ==
[2021-05-12 15:53] LABS: Hematocrit 36.7 % (42.0-52.0); Hemoglobin 9.9 g/dL (14.0-18.0)
== END 2021-05-12 13:42 | disposition home or self-care (01) ==
LOC: ANHLAB 13:47
PROVIDERS: Visit Provider Nurse Practitioner
DX: D64.9 Anemia, unspecified (principal)
CPT/HCPCS: 36415; 85014; 85018

== ENCOUNTER 2021-05-13 11:34 | Outpatient (CLI) | payer MEDICARE, SELFPAY ==
[2021-05-17 11:01] LABS: Gliadin AB, IgG >100 Units (<20); Reticulin IgA Negative (Negative); TTG IGA AB 22 U/mL (<4)
== END 2021-05-13 11:35 | disposition home or self-care (01) ==
LOC: ANHLAB 11:37
PROVIDERS: Visit Provider Internal Medicine Gastroenterology
DX: D64.9 Anemia, unspecified (principal)
CPT/HCPCS: 36415; 83516; 86255

== ENCOUNTER 2021-05-14 11:09 | Outpatient (CLI) | payer MEDICARE, SELFPAY ==
[2021-05-14 12:18] LABS: Hematocrit 39.3 % (42.0-52.0); Hemoglobin 10.8 g/dL (14.0-18.0); Immature Platelet Fraction Pct 8.7 % (0.9-11.2); Mean Corpuscular HGB Conc 27.5 g/dl (32-36); Mean Corpuscular Hemoglobin 23.3 pg (26-34); Mean Corpuscular Volume 84.7 fl (80-100); Mean Platelet Volume 11.6 fl (7.4-10.4); Platelet Count Result 319 k/mm3 (150-375); Red Blood Count 4.64 M/mm3 (4.6-6.20); Red Cell Distribution Width 27.6 % (11.5-14.5); White Blood Count 6.7 K/mm3 (4.5-10.0)
[2021-05-14 12:26] LABS: Alanine Aminotransferase 32 U/L (4-50); Albumin Level 3.8 g/dL (3.5-5.1); Alkaline Phosphatase 150 U/L (38-126); Anion Gap 11 mmol/L (8-16); Aspartate Amino Transferase 33 U/L (17-59); Bilirubin,Total 0.3 mg/dL (0.2-1.3); Blood Urea Nitrogen 11 mg/dL (9-20); Calcium 8.7 mg/dL (8.4-10.2); Carbon Dioxide 25 mmol/L (22-30); Chloride 104 mmol/L (98-107); Estimated Glomerular Filt Rate > 60; Glucose 89 mg/dL (75-110); Potassium 3.6 mmol/L (3.4-5.0); Sodium 140 mmol/L (137-145)
[2021-05-14 12:37] LABS: Add Urine Microscopic? YES; Appearance Urine Clear (Clear); Bacteria Urine Trace /hpf; Bilirubin Urine Negative (Negative); Blood Urine Negative (Negative); Color Urine Yellow (Yellow); Glucose Urine UA Negative (Negative); Ketones Urine Negative (Negative); Leukocyte Esterase Ur Negative LEU/UL (NEGATIVE); Mucus Urine Few /lpf; Nitrate Urine Negative (Negative); Protein Urine 1+ mg/dL (Negative); Specific Grav Ur 1.021 (1.001-1.035); Squamous Epithelial Cell Urine Rare /hpf (Few); Urobilinogen Urine Negative mg/dL (<2.0)
[2021-05-14 13:56] LABS: Free T4 Free Thyroxine 1.05 ng/mL (0.78-2.19)
== END 2021-05-14 11:10 | disposition home or self-care (01) ==
LOC: ANHLAB 11:20
PROVIDERS: Visit Provider Emergency Medicine
DX: R60.0 Localized edema (principal); D64.9 Anemia, unspecified
CPT/HCPCS: 36415; 80053; 81001; 84439; 84443; 85027; 85055

== ENCOUNTER 2021-05-28 12:45 | Outpatient (CLI) | payer MEDICARE, SELFPAY | END 2021-05-28 12:46 | disposition home or self-care (01) | PROVIDERS: PCP Emergency Medicine; Visit Provider Emergency Medicine | DX: R82.90 Unspecified abnormal findings in urine (principal) | CPT/HCPCS: 87086 ==

== ENCOUNTER 2021-06-09 08:11 | Outpatient (CLI) | payer MEDICARE, SELFPAY ==
--- NOTE | ~2021-06-09 | US_ITS ---
EXAMINATION: US right upper quadrant DATE: 06/09/2021 08:47 INDICATION: Abnormal liver function tests. TECHNIQUE: Multiple grayscale and Doppler ultrasound images of the abdomen were obtained. COMPARISON: None FINDINGS: The visualized portions of the head and body of the pancreas are normal. There is diffuse h epatic steatosis. No liver surface nodularity. There is normal flow in main portal vein. The gallblad charlotte is normal in size and contains gallstones. No gallbladder wall thickening or sonographic Gracia s ign. The common duct is normal and measures 7 mm. IMPRESSION: 1. Diffuse hepatic steatosis. 2. Cholelithiasis. No evidence of acute cholecystitis. Reviewed, dictated and finalized at location A.
== END 2021-06-09 08:12 | disposition home or self-care (01) ==
PROVIDERS: PCP Emergency Medicine; Visit Provider Emergency Medicine
DX: R74.8 Abnormal levels of other serum enzymes (principal); K76.0 Fatty (change of) liver, not elsewhere classified; K80.20 Calculus of gallbladder without cholecystitis without obstruction
CPT/HCPCS: 76705

== ENCOUNTER 2021-06-13 12:23 | Outpatient (CLI) | payer MEDICARE, SELFPAY ==
[2021-06-13 12:52] LABS: Basophils Percent Auto 0.4 % (0.2-1.2); Eosinophils Absolute Auto 0.9 K/mm3 (0-0.3); Eosinophils Percent Auto 17.3 % (0-4.4); Hematocrit 40.6 % (42.0-52.0); Hemoglobin 12.5 g/dL (14.0-18.0); Lymphocytes Percent Auto 25.8 % (18.3-44.2); Mean Corpuscular HGB Conc 30.8 g/dl (32-36); Mean Corpuscular Hemoglobin 28.3 pg (26-34); Mean Corpuscular Volume 92.1 fl (80-100); Monocytes Absolute Auto 0.4 K/mm3 (0.1-0.6); Monocytes Percent Auto 7.6 % (2.6-8.5); Neutrophils Absolute Auto 2.5 K/mm3 (1.3-6.7); Neutrophils Percent Auto 48.9 % (45.5-73.1); Platelet Count Result 227 k/mm3 (150-375); Red Blood Count 4.41 M/mm3 (4.6-6.20); Red Cell Distribution Width 22.9 % (11.5-14.5)
[2021-06-13 14:28] LABS: Alanine Aminotransferase 36 U/L (4-50); Albumin Level 4.5 g/dL (3.5-5.1); Alkaline Phosphatase 107 U/L (38-126); Anion Gap 10 mmol/L (8-16); Aspartate Amino Transferase 39 U/L (17-59); Bilirubin,Total 0.5 mg/dL (0.2-1.3); Blood Urea Nitrogen 12 mg/dL (9-20); Calcium 9.5 mg/dL (8.4-10.2); Carbon Dioxide 23 mmol/L (22-30); Chloride 106 mmol/L (98-107); Estimated Glomerular Filt Rate > 60; Glucose 93 mg/dL (65-110); Potassium 4.6 mmol/L (3.4-5.0); Sodium 139 mmol/L (137-145)
[2021-06-14 01:10] LABS: Iron 96 ug/dL (49-181); Percent Iron Saturation 29 % (20-50)
== END 2021-06-13 12:24 | disposition home or self-care (01) ==
LOC: ANHLAB 12:28
PROVIDERS: PCP Emergency Medicine; Visit Provider Internal Medicine Hematology & Oncology
DX: D64.9 Anemia, unspecified (principal)
CPT/HCPCS: 36415; 80053; 82607; 82728; 83540; 83550; 85025

== ENCOUNTER 2021-08-28 14:22 | Outpatient (CLI) | payer MEDICARE, SELFPAY ==
[2021-08-28 14:40] LABS: Basophils Percent Auto 0.4 % (0.2-1.2); Eosinophils Absolute Auto 0.3 K/mm3 (0-0.3); Eosinophils Percent Auto 4.7 % (0-4.4); Hematocrit 41.8 % (42.0-52.0); Hemoglobin 13.8 g/dL (14.0-18.0); Immature Granulocyte Absolute 0.01 K/mm3 (0.00-0.031); Immature Granulocyte Percent A 0.2 % (0-0.5); Lymphocytes Absolute Auto 1.47 K/mm3 (0.9-3.2); Lymphocytes Percent Auto 27.7 % (18.3-44.2); Mean Corpuscular Hemoglobin 31.9 pg (26-34); Mean Corpuscular Volume 96.8 fl (80-100); Mean Platelet Volume 10.1 fl (7.4-10.4); Monocytes Absolute Auto 0.4 K/mm3 (0.1-0.6); Monocytes Percent Auto 7.5 % (2.6-8.5); Neutrophils Absolute Auto 3.2 K/mm3 (1.3-6.7); Neutrophils Percent Auto 59.5 % (45.5-73.1); Platelet Count Result 254 k/mm3 (150-375); Red Blood Count 4.32 M/mm3 (4.6-6.20); Red Cell Distribution Width 12.7 % (11.5-14.5); White Blood Count 5.3 K/mm3 (4.5-10.0)
[2021-08-28 15:14] LABS: Anion Gap 8 mmol/L (8-16); Blood Urea Nitrogen 8 mg/dL (9-20); Carbon Dioxide 29 mmol/L (22-30); Chloride 103 mmol/L (98-107); Estimated Glomerular Filt Rate > 60; Glucose 98 mg/dL (65-110); Potassium 4.3 mmol/L (3.4-5.0); Sodium 140 mmol/L (137-145)
[2021-08-28 16:00] LABS: Iron 73 ug/dL (49-181)
[2021-08-28 16:09] LABS: Percent Iron Saturation 22 % (20-50)
[2021-08-28 16:23] LABS: Folic Acid 2.4 ng/mL (2.76->20); Vitamin B12 > 1000.0 pg/mL (239-931)
== END 2021-08-28 14:23 | disposition home or self-care (01) ==
LOC: ANHLAB 14:23
PROVIDERS: PCP Emergency Medicine; Visit Provider Internal Medicine Hematology & Oncology
DX: D64.9 Anemia, unspecified (principal)
CPT/HCPCS: 36415; 80048; 82607; 82728; 82746; 83540; 83550; 85025

== ENCOUNTER → 2022-04-08 15:35 | Outpatient (CLI) | payer MEDICARE, SELFPAY ==
--- NOTE | ~2022-04-08 | XR_ITS ---
XR abdomen/kub 1V 04/08/2022 15:50 INDICATION: UTI. Hematuria. TECHNIQUE: KUB COMPARISON: None FINDINGS: Bowel gas pattern is normal. Moderate colonic fecal loading. There is no evidence of free a ir, mass, organomegaly, ascites or obstruction. No abnormal calculi are seen. The bones appear inta ct. There are lumbar compression deformities with generalized osteopenia. IMPRESSION: 1: No acute abdominal abnormality identified. Reviewed, dictated and finalized at location B.
== END ==
PROVIDERS: PCP Emergency Medicine; Visit Provider Emergency Medicine
DX: N39.0 Urinary tract infection, site not specified (principal); R31.9 Hematuria, unspecified
CPT/HCPCS: 74018

== ENCOUNTER 2024-07-24 14:37 | Emergency (ER) | payer MEDICARE, SELFPAY ==
--- NOTE | ~2024-07-24 | CT_ITS ---
EXAMINATION: CT abdomen pelvis w con DATE: 07/24/2024 16:04 INDICATION: Weakness, abdominal pain and diarrhea TECHNIQUE: Computed tomography (CT) of the abdomen and pelvis was performed with 100 mL Omnipaque-350 intravenous contrast. Automated exposure control and iterative reconstruction technique were employe d. The dose-length product was 464.10 mGy-cm. COMPARISON: None FINDINGS: Mild dependent atelectasis in bilateral lower lobes. Calcified left lower lobe nodules qualitatively single splenic calcification consistent with old granulomatous disease. Heart size normal. No pericar dial or pleural effusion. Moderate-sized sliding-type hiatal hernia.. There are multiple low-density gallstones in the nondependent aspect of the otherwise normal-appearing gallbladder. No gallbladder w all thickening or pericholecystic inflammatory stranding to suggest acute cholecystitis. Small elonga ayo geographic region of decreased attenuation along the ligamentum teres most likely related to foca l fat. Pancreas, bilateral adrenal glands and kidneys are normal. There is moderate colonic diverticu losis with a sigmoid predominance. There is no adjacent inflammatory change to suggest diverticuliti s. There is fluid and multiple loops of small bowel as well as the proximal colon consistent with pr ovided history of diarrhea. Is normal appendix. Prostate not visualized and likely surgically absent. Bladder is unremarkable. No free intraperitoneal gas or fluid. No pathologically enlarged abdominal or pelvic lymphadenopathy. Chronic appearing mild central endplate compression fractures at several l evels in the mid to lower lumbar spine. 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 IMPRESSION: 1. Fluid in portions of the large and small bowel consistent with provided history of diarrhea. No ot her acute intra-abdominal/pelvic process. 2. Moderate-sized sliding-type hiatal hernia. 3. Cholelithiasis without intra or extra hepatic biliary ductal dilation. 4. Moderate diverticulosis. Reviewed, dictated and finalized at location A. IMPRESSION: 1. Fluid in portions of the large and small bowel consistent with provided hist ory of diarrhea. No other acute intra-abdominal/pelvic process. 2. Moderate-sized sliding-type hiatal hernia. 3. Cholelithiasis without intra or extra hepatic biliary ductal dilation. 4. Moderate diverticulosis.
[2024-07-24 14:50] VITALS: BP 128/77; PULSE 91; RESP 15; TEMP 36.4; O2SAT 100
--- NOTE | 2024-07-24 15:06 | ED.GENADULT ---
HPI - General Adult General Chief complaint: Nausea/Vomiting/Diarrhea <Bae Chen PA-C - Last Filed: 07/24/24 15:13> Stated complaint: dehydrated/diarrhea <Bea Chen PA-C - Last Filed: 07/24/24 15:13> Time Seen by Provider: 07/24/24 15:00 <Bea Chen PA-C - Last Filed: 07/24/24 15:13> Focused HPI: Patient is a 78 y/o male who presents to the ED with c/o weakness and diarrhea. Patient reports he inflamed his large and small bowel a few weeks ago by eating sarabia beans with too much Tabasco sauce. He states he has had diarrhea over the past few weeks. He has been taking Imodium which has provided some relief. He c/o intermittent abd pain. Denies rectal bleeding, melena, fevers, N/V. He does also report congestion and sinus pressure. States he has a L inner ear infection. Denies drainage. Denies cough. Hx of anemia, states he is supposed to receive an iron infusion soon. GENERAL: Elderly, well-nourished, and in no acute distress. HEAD: Normocephalic, atraumatic. CHEST: Clear to auscultation. ?No respiratory distress. HEART: Regular rate and rhythm.? ABD: No significant tenderness. Normoactive BS NEURO: ?Alert and oriented x3. Patient screened in triage and initial orders placed.? ?Additional care and disposition to be based upon?diagnostic testing and treatment. <Bea Chen PA-C - Last Filed: 07/24/24 15:13> Source: patient <Bea Chen PA-C - Last Filed: 07/24/24 15:13> Mode of arrival: ambulatory <Bea Chen PA-C - Last Filed: 07/24/24 15:13> Limitations: no limitations <BEVERLY Romo Last Filed: 07/24/24 15:13> History of Present Illness HPI narrative: I agree with the HPI as documented in the medical screening exam. <Ludin Casanova MD - Last Filed: 07/24/24 20:50> Related Data Home medications: Home Medications Medication Instructions Recorded Confirmed ajqntqtfb-woaM-warikqa-FOS-bromelain 15 ml PO DAILY 05/07/21 06/03/21 1,937 mg-188 mg/15 mL oral liquid (Cystex Cranberry) diphenhydramine-calamine lotion 1 ea topical PRN PRN Itching 05/07/21 06/03/21 <Bea Chen PA-C - Last Filed: 07/24/24 15:13> Allergies/adverse reactions: Allergies Allergy/AdvReac Type Severity Reaction Status Date / Time pollen extracts AdvReac Congested Verified 06/03/21 13:43 <Bea Chen PA-C - Last Filed: 07/24/24 15:13> Review of Systems Review of Systems: All systems reviewed & are unremarkable except as noted in HPI and below <Ludin Casanova MD - Last Filed: 07/24/24 20:50> PMFSH Past Medical History Medical History: Medical History Patient denies significant medical history <Bea Chen PA-C - Last Filed: 07/24/24 15:13> Surgical History Surgical History: Surgical History History of cataract extraction No significant past surgical history <Bea Chen PA-C - Last Filed: 07/24/24 15:13> Family History Family History: Family History Mother Diabetes mellitus Heart attack Father Diabetes mellitus Sibling Diabetes mellitus COVID <Bea Chen PA-C - Last Filed: 07/24/24 15:13> Social History Social History: Social History Social History: the 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 The patient has 1 daughter. The patient occasionally has a glass of bourbon. 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
[2024-07-24 15:23] LABS: Basophils Percent Auto 0.2 % (0.2-1.2); Eosinophils Percent Auto 0.5 % (0-4.4); Hematocrit 43.6 % (42.0-52.0); Hemoglobin 14.7 g/dL (14.0-18.0); Immature Granulocyte Absolute 0.02 K/mm3 (0.00-0.031); Immature Granulocyte Percent A 0.3 % (0-0.5); Lymphocytes Absolute Auto 0.69 K/mm3 (0.9-3.2); Lymphocytes Percent Auto 10.5 % (18.3-44.2); Mean Corpuscular HGB Conc 33.7 g/dl (32-36); Mean Corpuscular Hemoglobin 29.5 pg (26-34); Mean Corpuscular Volume 87.6 fl (80-100); Monocytes Absolute Auto 0.6 K/mm3 (0.1-0.6); Monocytes Percent Auto 9.6 % (2.6-8.5); Neutrophils Absolute Auto 5.2 K/mm3 (1.3-6.7); Neutrophils Percent Auto 78.9 % (45.5-73.1); Platelet Count Result 252 k/mm3 (150-375); Red Blood Count 4.98 M/mm3 (4.6-6.20); Red Cell Distribution Width 14.6 % (11.5-14.5); White Blood Count 6.6 K/mm3 (4.5-10.0)
[2024-07-24 15:37] VITALS: BP 118/81; PULSE 93; RESP 17; O2SAT 97
[2024-07-24 15:39] LABS: Alanine Aminotransferase 42 U/L (6-50); Albumin Level 4.1 g/dL (3.5-5.1); Alkaline Phosphatase 74 U/L (38-126); Anion Gap 13 mmol/L (4-12); Aspartate Amino Transferase 35 U/L (17-59); Bilirubin,Total 0.9 mg/dL (0.2-1.3); Blood Urea Nitrogen 14 mg/dL (9-20); Calcium 8.7 mg/dL (8.4-10.2); Carbon Dioxide 23 mmol/L (22-30); Chloride 96 mmol/L (98-107); Estimated CRCL calculation 95 ml/min; Estimated Glomerular Filt Rate > 60; Glucose 103 mg/dL (65-110); Lipase 246 U/L (23-300); Potassium 2.7 mmol/L (3.4-5.0); Sodium 132 mmol/L (137-145)
[2024-07-24 15:59] LABS: Influenza A QL RT-PCR Negative (Negative); Influenza B QL RT-PCR Negative (Negative); RSV RNA, RT-PCR Negative (Negative); SARS-CoV-2 RNA PCR Negative (Negative)
--- NOTE | 2024-07-24 16:19 | ECG_ITS ---
Test Date: 2024-07-24 17:48:51 Measurements Intervals [place] Rate: 96 P: 0 [place]: 0 QRS: 2 QRSD: 94 T: 64 QT: 362 QTc: 458 Interpretive Statements SINUS RHYTHM WITH FREQUENT ATRIAL PREMATURE COMPLEXES EARLY PRECORDIAL R/S TRANSITION MINIMAL Q WAVES- ANTERAOLAT/HIGH LAT LEADS BORDERLINE ST-T WAVE ABNORMALITY- HIGH LATERAL LEADS BASELINE ARTIFACT- I, II, III, AVR, AVL, AVF, V1-V6 ABNORMAL ECG No previous ECG available for comparison Electronically Signed On 07-24-2024 18:51:47 CDT by Hilario Mo D.O.
[2024-07-24 16:49] LABS: Lactic Acid Reflex 1.5 mmol/L (0.7-2.0)
[2024-07-24] MEDS: POTASSIUM CHLORIDE 20 MEQ PACKET (FOR LIQUID) 40 MEQ PO (17:13)
[2024-07-24] MEDS: KCL 20 MEQ/SW 100 ML 100 ML 50 MEQ IVPB (17:15)
[2024-07-24] MEDS: SODIUM CHLORIDE 0.9% IV 1,000 ML 999 ML IV CONT (17:15)
[2024-07-24 18:03] VITALS: BP 116/81; PULSE 98; RESP 20; O2SAT 97
[2024-07-24 18:15] LABS: Add Urine Microscopic? YES; Appearance Urine Clear (Clear); Bacteria Urine None Seen /hpf; Bilirubin Urine Negative (Negative); Blood Urine 2+ (Negative); Color Urine Yellow (Yellow); Glucose Urine UA Negative (Negative); Ketones Urine Trace mg/dL (Negative); Leukocyte Esterase Ur Negative LEU/UL (Negative); Need Manual Microscopic Reviewed; Nitrate Urine Negative (Negative); Non Pathogenic Casts 0-2; Protein Urine Trace mg/dL (Negative); RBC Urine 51-100 /hpf (0-2); Specific Grav Ur > 1.045 (1.001-1.035); Squamous Epithelial Cell Urine None Seen /hpf (Few); Urobilinogen Urine 0.2 mg/dL (<2.0); WBC Urine 0-5 /hpf (0-3)
[2024-07-24 20:04] VITALS: BP 108/66; PULSE 84; RESP 15; O2SAT 99
[2024-07-24 21:04] VITALS: BP 106/58; PULSE 97; RESP 15; O2SAT 100
== END 2024-07-24 21:05 | disposition home or self-care (01) ==
PROVIDERS: Physician Assistant; Emergency Provider Preventive Medicine Aerospace Medicine; PCP Emergency Medicine
DX: E87.6 Hypokalemia (principal); K52.9 Noninfective gastroenteritis and colitis, unspecified; R31.29 Other microscopic hematuria; R94.31 Abnormal electrocardiogram [ECG] [EKG]
CPT/HCPCS: 36415; 74177; 80053; 81001; 83605; 83690; 83735; 85025; 87637; 93005; 96361; 96365; 99284; A9270; J3480; J7030; Q9967

== ENCOUNTER 2025-01-01 14:41 | Outpatient (CLI) | payer MEDICARE, SELFPAY | END 2025-01-01 14:42 | disposition home or self-care (01) | LOC: ANHIMG 14:43 | PROVIDERS: PCP Emergency Medicine; Visit Provider Emergency Medicine | DX: M81.0 Age-related osteoporosis without current pathological fracture (principal) | CPT/HCPCS: 77080 ==

== ENCOUNTER 2025-03-13 13:18 | Outpatient (CLI) | payer MEDICARE, SELFPAY ==
--- OUTSIDE RECORDS SUMMARY | 2025-03-13 13:42 | XMS_ITS | CONTINUITY OF CARE DOCUMENT ---
Author Name marce zheng Address Unknown Organization [facility] Address [address] [place] [address] [address] [place] [address] Phone [phone] Care Team Providers Care Towboat Captain Name Role Phone Eddie Mccann MD Unavailable SHRUTHI BIANCHI MD Unavailable [phone] SHRUTHI BIANCHI MD Unavailable [phone] PROBLEMS Condition Status Date Provider Notes Cardiovascular screening active Eddie pimentel MD SLEEP APNEA active Eddie Mccann MD Anemia active Eddie Mccann MD Leg edema, bilateral active Eddie Mccann MD ENCOUNTERS Date Type Provider Location Encounter Diag nosis - In-person encounter Office Visit Eddie Mccann MD [facility] - In-person encounter Office Visit Eddie Mccann MD [facility] SLEEP APNEA - In-person encounter Office Visit Eddie Mccann MD [facility] - In-person encounter Office Visit Eddie Mccann MD [facility] Cardiovascular screeningLeg edema, bilateralAnemia VITAL SIGNS Date Observation Value Provider Body Mass Index (Ratio) 27.88 kg/m2 David Mccann MD blood pressure, diastolic -1 mm[Hg] Neva nkLogvolodymyr blood pressure, systolic 133 mm[Hg] Olena Wheelerogvolodymyr blood pressure, diastolic 82 mm[Hg] Sa ra Sweeney blood pressure, systolic 133 mm[Hg] Edward a Sweeney oxygen saturation, oximetry 97 % Margoth Sweeney respiratory rate E&M 16 /min Margoth Si ms pulse rate 61 /min Margoth Sweeney weight E&M 178 [lb_av] Margoth Sweeney blood pressure, cuff size regular Sa ra Sweeney height E&M 67 [in_i] Margoth Sweeney Body Mass Index (Ratio) 27.88 kg/m2 David Mccann MD blood pressure, cuff size large Ke rri Gruenenfelder blood pressure, diastolic 76 mm[Hg] Ke rri Tavouenenfelder blood pressure, systolic 126 mm[Hg] Terry Molina oxygen saturation, oximetry 98 % Nery Molina respiratory rate E&M 14 /min Nery connolly pulse rate 72 /min Nery Lew er weight E&M 178 [lb_av] Nery Lew er height E&M 67 [in_i] Nery Hackett er Body Mass Index (Ratio) 24.74 kg/m2 David Mccann MD blood pressure, diastolic 76 mm[Hg] Ch astity Alfredo blood pressure, systolic 128 mm[Hg] Anita stity Alfredo oxygen saturation, oximetry 94 % Chastity Alfredo pulse rate 66 /min Chastity Alfredo weight E&M 158 [lb_av] Chastity Alfredo respiratory rate E&M 16 /min Chastit y Alfredo height E&M 67 [in_i] Nunu Fuentes Body Mass Index (Ratio) 25.53 kg/m2 David Mccann MD blood pressure, diastolic 60 mm[Hg] Renato hagen O'Gary blood pressure, systolic 110 mm[Hg] Le ramirez O'Gary blood pressure, resting No Jones alexandra O'Gary oxygen saturation, oximetry 98 % Summer O'Gary respiratory rate E&M 16 /min Summer O'Gary pulse rate 63 /min Summer O'Gary weight E&M 163 [lb_av] Summer O'Gary height E&M 67 [in_i] Summer O'Gary ALLERGIES No Known Drug Allergies HISTORY OF MEDICATION USE Medication Status Instructions Dates Provider Indications Com ments triamcinolone acetonide 0.1% ointment active Margoth Sweeney calcium carbonate-vitamin D3 500 mg-15 mcg (600 unit) tablet active TAKE 1 TABLET BY MOUTH EVERY DAY WITH A MEAL Margoth Sweeney Banophen 25 mg capsule active TAKE 1 CAPSULE BY MOUTH EVERY 6 HOURS NEEDED FOR ITCHING Summer Lam'Gary Ear Drops (carbamide peroxide) 6.5% drops completed INSTILL 5 DROPS INTO THE LEFT EAR TWICE DAILY FOR 4 DAYS - 6 Summer Lam'Gary prednisone 10 mg tablet completed - 6 Summer Carole'Gary cyanocobalamin (vitamin B-12) 1,000 mcg tablet active TAKE 1 TABLET BY MOUTH IN THE MORNING Summer Zhang hydrocortisone 2.5% cream active Summer Carole'Gary ferrous sulfate 325 mg (65 mg iron) tablet active TAKE 1 TABLET BY MOUTH TWICE A DAY Summer Zhang SOCIAL HISTORY Date Observation Value Provider social history reviewed E&M revchristine ewed - no changes required Eddie Mccann MD social history E&M S moking History: Maral asad has never smoked. Eddie Mccann MD smoking status Never smoker Eddie Mccann MD smoking status Never smoker Nery mancera social history E&M S moking History: P asad has never smoked. Eddie Mccann MD social history reviewed E&M revi ewed - no changes required Eddie Mccann MD smoking status Never smoker Nunu cam social history E&M S moking History: P asad has never smoked. 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 Eddie Mccann MD [id number],C,H e apparently stops breathing per his and we will check a home sleep study. Eddie Mccann MD [id number],B, Eddie Mccann MD [id number],C,from celiac d isease. dEdie Mccann MD [id number],B, Eddie Mccann MD [id number],B,r ecommend compression socks 10-20 mmhg knee high Eddie Mccann MD [id number],C,H emoglobin currently 10.5 and was 5 at hospital. Etiology is not clear. Will check echo that was done at [facility]. Eddie Mccann MD [id number],B,H e decreased his salt intake and it drastically reduced his leg swelling Eddie Mccann MD Cardiology: Will ref er to sleep doctor; Dior Ma H e states that he did not sleep during the titration study done in May and so by seeing the sleep doctor, they may be able to determine if it was an adequate study or needs to be redone Eddie Mccann MD Cardiology:From compression sock s. Eddie Mccann MD Cardiology:He appare ntly stops breathing per his and we will check a home sleep study. Eddie Mccann MD Cardiology Eddie Mccann MD Cardiology:from celiac disease. Eddie Mccann MD Cardiology Eddie Mccann MD Cardiology:recommend compression socks 10-20 mmhg knee high Eddie Mccann MD Cardiology:Hemoglobi n currently 10.5 and was 5 at hospital. Etiology is not clear. Will check echo that was done at [facility]. Eddie Mccann MD Cardiology:He decrea sed his salt intake and it drastically reduced his leg swelling Eddie Mccann MD Date Name Sleep Study Home Venous Doppler Bilat eral LE - Reflux HISTORY OF PROCEDURES Procedure Date Procedure Name Provider Procedure Notes S tatus EKG Eddie Mccann MD completed EKG Eddie Mccann MD completed
--- OUTSIDE RECORDS SUMMARY | 2025-03-13 13:42 | XMS_ITS | Clinical Summary ---
Author Organization [facility] Address [address] [place] [address] Care Team Providers Care Heddler Tier Name Role Phone Paulo Urias MD Primary Care Provider [phone] Source Comments [facility],non-owned Affiliates and Associated Physician Practices is amultiple site organization consisting of ambulatory clinics and hospital sitesin [place], [place], [place] and [place]. This disclosure is being madepursuant to the Care Everywhere program and may not contain all information available regarding this patient. Last updated 18.[facility] [employer] Social History Tobacco Use Types Packs/Day Years Used Date Smoking Tobacco: Never Assessed Sex and Gender Information Value Date Recorded Sex Assigned at Not on file Legal Sex Male 7:43 PM [employer]NAPSACK [employer]AY[employer] Gender Identity Not on file Sexual Orientation Not on file Plan of Treatment Health Maintenance Due Date Last Done Comments DTAP/TDAP/TD VACCINES (1 - Tdap) 1964 PNEUMOCOCCAL VACCINE 50+ (1 of 1 - PCV) 1995 ZOSTER VACCINE (1 of 2) 1995 Respiratory Syncytial Virus (RSV) Vaccine Pt: or over 60 yrs (1 - 1-dose 75+ series) 2020 COVID-19 VACCINE ( - 2023-2 5 season) 2024 DEPRESSION SCREENING 11/01/2024 INFLUENZA VACCINE (Season Ended) 2025 HEPATITIS B VACCINE Aged Out No longe r eligible based on patient's age to complete this topic HIB VACCINE Aged Out No longer eligi ble based on patient's age to complete this topic HPV VACCINE Aged Out No longer eligi ble based on patient's age to complete this topic MENINGOCOCCAL (Group B) VACC INE SHARED DECISION-MAKING Aged Out No longer eligibl e based on patient's age to complete this topic MENINGOCOCCAL GROUPS A/C/Y/W VACCINE Aged Out No longer eligible b ased on patient's age to complete this topic Insurance AETNA Care Teams Heddler Tier Relationship Specialty Start Date End Date aPulo Urias MD [address] [place] [address] PCP - General 05/29/21
--- OUTSIDE RECORDS SUMMARY | 2025-03-13 13:42 | XMS_ITS | Encounter Summary ---
Author Organization [facility] Address [address] [place] [address] Care Team Providers Care Auto Collision Repair Instructor Name Role Phone Paulo Urias MD Primary Care Provider [phone] Encounter Details Date Type Department Care Team (Late st Contact Info) Description 04/13/2022 Lab Requisition [facility] [address] [place] [address] Mani Hernandez MD [address] [place] [address] Social History Tobacco Use Types Packs/Day Years Used Date Smoking Tobacco: Never Assessed Sex and Gender Information Value Date Recorded Sex Assigned at Not on file 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 Gender Identity Not on file Sexual Orientation Not on file documented as of this encounter Plan of Treatment Not on file documented as of this encounter Procedures Procedure Name Priority Date/Time Associated Diagnosis Comments DERMATOPATHOLOGY Routine 04/10/2022 12:0 0 AM CDT documented in this encounter Results * DERMATOPATHOLOGY (04/10/2022 12:00 AM CDT) Case Report Dermatopathology Report Case: [id number] Authorizing Provider: Mani Hernandez MD Collected: 04/10/2022 12:00 AM Ordering Location: [facility] Received: 04/13/2022 03:24 PM Pathologist: Elaine Greene MD Specimen: Skin, left back 2 5:29 PM CDT DERMATOPATHOLOGY LABORATORY Final Diagnosis Specimen A. 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 Path # [id number]. 2 5:29 PM [facility] DERMAT[facility] Gross Description Specimen A: Received is one formalin filled container labeled with the patient's name and designated left back. The specimen consists of a shave biopsy measuring [id number]. Jar 0. 2 5:29 PM [facility] DERMATOPATHOLOGY LABORATORY Microscopic Description Specimen A. SKIN, left back: There is focal parakeratosis and spongiosis. There are few scattered intraepidermal neutrophilic microabscess. The dermis shows a superficial and deep, perivascular and interstitial infiltrate of lymphocytes and eosinophils. Grocott's methenamine silver (GMS) and Tissue Gram fail to highlight fungal or bacterial elements in the available sections. COMMENT: These histologic findings are favored to represent an eczematous dermatitis with secondary impetiginization, although no bacterial cocci were present on Tissue gram stain. The differential diagnosis of these histologic findings also include acute generalized exanthematous pustulosis (AGEP), subcorneal pustular dermatosis, IgA pemphigus, pustular psoriasis, as well as infectious etiologies including impetigo and candidiasis. If there is clinical concern for a diagnosis of IgA pemphigus, consideration should be given to submitting tissue for direct immunofluorescence. Clinicopathologic correlation is recommended. 2 5:29 PM [facility] DERMATOPATHOLOGY LABORATORY Disclaimer An external and internal positive and negative controls are appropriate for the histochemical, immunohistochemical and immunofluorescence stain(s) in this case (if any), except where stated explicitly. The performance characteristics of the stain(s) cited in this report were developed and its performance characteristic determined by the Dermatopathology Laboratory at [facility], directed by Dr. Miguel Mendez. These tests need not be, and therefore are not, approved by the [place] Food and Drug Administration. The tests are used for clinical purposes. Billing Codes Specimen Charges Stain Charges 09417 1 05165 70421 1 1 2 5:29 PM T DERMATOPATHOLOGY LABORATORY Embedded Images 2 5:29 PM [facility] DERMATOPATHOLOGY LABORATORY Pathology/Cytolog y TISSUE SPECIMEN FROM SKIN / Unknown 04/10/2022 04/13/2022 3:24 PM CDT Mani Hernandez MD LAB - PATHOLOGY/CYTOLOGY ORDER JERRY Final Result DERMATOPATHOLOGY LABORATORY [facility] - Department of Dermatology [facility] Medicine [address] [place] [address], [address] [phone] documented in this encounter Visit Diagnoses Not on filedocumented in this encounter Care Teams Auto Collision Repair Instructor Relationship Specialty Start Date End Date Paulo Urias MD [address] [place] [id number] PCP - General 05/29/21 documented as of this encounter
--- OUTSIDE RECORDS SUMMARY | 2025-03-13 13:42 | XMS_ITS | Clinical Summary ---
Author Organization [facility] Address [address] [place] [address] Care Team Providers Care Doorkeeper Name Role Phone Paulo Urias MD Primary Care Provider [phone] Allergies Active Allergy Reactions Criticality Noted Date Comments Gluten Abdominal Pain Low 12/02/2022 Medications cyanocobalamin 1,000 mcg Tablet TAKE 1 TABLET BY MOUTH IN THE MORNING 05/09/2021 Active hydrocortisone (HYTONE) 2.5 % Cream APPLY TO AFFECTED AREA TWICE A DAY 05/30/2021 Active Ear Drops 6.5 % Drops INSTILL 5 DROPS INTO THE LEFT EAR TWICE DAILY FOR 4 DAYS 05/21/2021 Active triamcinolone acetonide (KENALOG) 0.1 % Cream APPLY TO AFFECTED AREA EVERY DAY 12/30/2021 Active omeprazole (PriLOSEC) 20 mg Capsule, Delayed Release(E.C.) TAKE 1 CAPSULE BY MOUTH EVERY DAY 30 MINUTES BEFORE MORNING MEAL 12/02/2021 Active nitrofurantoin (MACROBID) 100 mg capsule TAKE 1 CAPSULE BY MOUTH EVERY 12 HOURS FOR 7 DAYS WITH FOOD 04/02/2022 Active calcium carbonate-vitam in D3 500 mg-15 mcg (600 unit) Tablet TAKE 1 TABLET BY MOUTH EVERY DAY WITH A MEAL 04/09/2022 Active Active Problems Problem Noted Date Diagnosed Date 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 B12 deficiency anemia 06/01 Iron deficiency anemia 06/13/2021 Family History Medical History Relation Name Comments Diabetes Father Heart Disease Father Diabetes Mother Heart Disease Mother Relation Name Status Comments Brother 1 Alive Brother 2 Alive Father Mother Sister 1 sister passed f rom covid Sister 2 Alive Social History Tobacco Use Types Packs/Day Years Used Date Smoking Tobacco: Never Smokeless Tobacco: Never Tobacco Cessation:Counseling Given: Not Answered Alcohol Use Standard Drinks/Week Comments Not Currently 0 (1 standard drink = 0.6 oz pur e alcohol) Sex and Gender Information Value Date Recorded Sex Assigned at Not on file Legal Sex Male 3:37 PM CDT Gender Identity Not on file Sexual Orientation Not on file Last Filed Vital Signs Vital Sign Reading Time Taken Comments Blood Pressure 137/69 12/02/2022 2:03 PM SAMPLE PROCESSOR Pulse 77 12/02/2022 2:03 PM SAMPLE PROCESSOR Temperature 36.3 C (97.3 F) 12/02/2022 2:03 PM SAMPLE PROCESSOR Respiratory Rate 14 12/02/2022 2:03 PM SAMPLE PROCESSOR Oxygen Saturation 100% 12/02/2022 2:03 PM SAMPLE PROCESSOR Inhaled Oxygen Concentration - - Weight 78.2 kg (172 lb 6.4 oz) 12/02/2022 2:03 P M SAMPLE PROCESSOR Height 168.9 cm (5' 6.5 ) 06/03/2022 2:20 PM CDT Body Mass Index 27.41 06/03/2022 2:20 PM CDT Plan of Treatment Health Maintenance Due Date Last Done Comments DTAP/TDAP/TD VACCINES (1 - Tdap) 1964 PNEUMOCOCCAL VACCINE 50+ YEARS (1 of 1 - PCV) 10/03/19 95 ZOSTER VACCINE (1 of 2) 1995 RSV VACCINE (60+ or ) (1 - 1-dose 75+ series) 2020 INFLUENZA VACCINE (#1) 2024 Insurance [employer] O [facility] Care Teams Doorkeeper Relationship Specialty Start Date End Date Paulo Urias MD [address] [place] [phone] PCP - General Emergency Medicine 06/13/21
[2025-03-13 14:32] LABS: Anion Gap 8 mmol/L (4-12); Blood Urea Nitrogen 11 mg/dL (9-20); Calcium 8.8 mg/dL (8.4-10.2); Carbon Dioxide 27 mmol/L (22-30); Chloride 103 mmol/L (98-107); Estimated Glomerular Filt Rate > 60; Glucose 94 mg/dL (65-110); Potassium 4.3 mmol/L (3.4-5.0); Sodium 138 mmol/L (137-145)
== END 2025-03-13 13:19 | disposition home or self-care (01) ==
PROVIDERS: PCP Emergency Medicine; Visit Provider Nurse Practitioner Family
DX: E87.1 Hypo-osmolality and hyponatremia (principal); E87.6 Hypokalemia; K90.0 Celiac disease; R19.7 Diarrhea, unspecified
CPT/HCPCS: 36415; 80048